=== PATIENT | male | born 1980 | race American Indian/Alaskan Native ===

== ENCOUNTER 2017-06-24 14:26 | Emergency (ER) | payer OTHER ==
[2017-06-24] MEDS ORDERED: ASPIRIN PO ONE (14:48)
[2017-06-24 15:22] LABS: Basophils % (Auto) 0.5 % (0.0-1.8); Eosinophils % (Auto) 0.4 % (0.0-4.3); Hematocrit 40.6 % (35.5-45.6); Hemoglobin 13.4 gm/dl (11.8-15.2); Lymphocytes # (Auto) 1.9 K/mm3 (1.2-5.4); Lymphocytes % (Auto) 22.5 % (13.4-35.0); Mean Corpuscular HGB Conc 33 % (32-34); Mean Corpuscular Hemoglobin 29 pg (28-32); Mean Corpuscular Volume 88 fl (84-94); Monocytes # (Auto) 0.6 K/mm3 (0.0-0.8); Monocytes % (Auto) 7.5 % (0.0-7.3); Platelet Count 269 K/mm3 (140-440); Red Blood Count 4.62 M/mm3 (3.65-5.03); Red Cell Distribution Width 13.2 % (13.2-15.2)
[2017-06-24 15:31] LABS: BUN/Creatinine Ratio 21; Blood Urea Nitrogen 17 mg/dL (9-20); Calcium 9.2 mg/dL (8.4-10.2); Hemolysis Index 5
--- NOTE | 2017-06-24 17:36 | Emergency Department Report ---
ED Chest Pain HPI - General Chief Complaint: Chest Pain Stated Complaint: CHEST/ARM PAIN/POSS HIGH BP Time Seen by Provider: 06/24/17 16:44 Source: patient Mode of arrival: Ambulatory Limitations: No Limitations - History of Present Illness Initial Comments: 37-year-old male with past medical history of hypertension and asthma presents to hospital complains of left-sided chest pain radiating to her arm at 11 AM. 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 He was performing lifting when symptoms occurred. Patient has had constant pain to left chest described as squeezing pain fluctuates in intensity with shooting pain down his left arm. Positive associated shortness breath, nausea, diaphoresis. Patient smokes cigarettes. Denies family history of CAD. Patient had a stress test about 8 years ago required a cardiac cath. Patient cannot recall the result but states that the doctors were discussing placing a stent that he never followed back up. Patient received aspirin prior to arrival. He's been noncompliant with his blood pressure medicine lisinopril/hydrochlorothiazide for the past 6 days because he thinks it makes him dehydrated because he urinates a lot while taking the medication. - Related Data Previous Rx's Medication Instructions Recorded Last Taken Type Azithromycin [Zithromax Z-RANDA] 250 mg PO DAILY #6 tablet 11/18/13 Unknown Rx Prednisone 40 mg PO DAILY #5 day 11/18/13 Unknown Rx traMADol [Ultram 50 MG tab] 50 mg PO Q6HR PRN #20 tablet 11/18/13 Unknown Rx ALPRAZolam [Xanax TAB] 0.5 mg PO BID PRN #20 tab 06/24/17 Unknown Rx Pantoprazole [Protonix TAB] 20 mg PO DAILY #30 tablet. 06/24/17 Unknown Rx Allergies Allergy/AdvReac Type Severity Reaction Status Date / Time No Known Allergies Allergy Unverified 11/18/13 16:33 Heart Score - HEART Score History: Slightly suspicious EKG: Non-specific Age: < 45 Risk factors: 1-2 risk factors Troponin: < normal limit HEART Score: 2 ED Review of Systems ROS: Stated complaint: CHEST/ARM PAIN/POSS HIGH BP Other details as noted in HPI Comment: All other systems reviewed and negative ED Past Medical Hx - Past Medical History Hx Hypertension: Yes Hx Asthma: Yes Additional medical history: torn esophagus - Surgical History Past Surgical History?: No - Social History Smoking Status: Current Every Day Smoker Substance Use Type: Alcohol - Medications Home Medications: Home Medications Medication Instructions Recorded Confirmed Last Taken Type Azithromycin [Zithromax Z-RANDA] 250 mg PO DAILY #6 tablet 11/18/13 Unknown Rx Prednisone 40 mg PO DAILY #5 day 11/18/13 Unknown Rx traMADol [Ultram 50 MG tab] 50 mg PO Q6HR PRN #20 tablet 11/18/13 Unknown Rx ALPRAZolam [Xanax TAB] 0.5 mg PO BID PRN #20 tab 06/24/17 Unknown Rx Pantoprazole [Protonix TAB] 20 mg PO DAILY #30 tablet. 06/24/17 Unknown Rx ED Physical Exam - General Limitations: No Limitations - Other Other exam information: General: No limitations, patient is alert in no acute distress Head exam: Atraumatic, normocephalic Eyes exam: Normal appearance, pupils equal reactive to light, extraocular movements intact ENT: Moist mucous membrane, normal oropharynx Neck exam: Normal inspection, full range of motion, no meningismus nontender Respiratory exam: Clear to auscultation bilateral, no wheezes, rales, crackles Cardiovascular: Normal rate and rhythm, left mid chest wall tenderness Abdomen: Soft, nondistended, and nontender, with normal bowel sounds, no rebound, or guarding Extremity: Full range of motion normal inspection no deformity, no calf tenderness or edema Back: Normal Inspection, full range of motion, no tenderness Neurologic: Alert, oriented x3, cranial nerves intact, no motor or sensory deficit Psychiatric: normal affect, normal mood Skin: Warm, dry, intact ED Course Vital Signs 06/24/17 14:44 Temperature 98.3 F Pulse Rate 89 Respiratory 18 Rate Blood Pressure 162/97 O2 Sat by Pulse 99 Oximetry PARVIZ score - Parviz Score Age > 65: (0) No Aspirin use within the Past 7 Days: (0) No 3 or more CAD Risk Factors: (0) No 2 or more Angina events in past 24 hrs: (1) Yes Known CAD with more than 50% Stenosis: (0) No Elevated Cardiac Markers: (0) No ST Deviation Greater than 0.5mm: (0) No PARVIZ Score: 1 ED Medical Decision Making - Lab Data Result diagrams: 06/24/17 14:54 06/24/17 14:54 Lab Results 06/24/17 06/24/1706/24/18 Range/Units 14:54 14:54 17:16 WBC 8.3 (4.5-11.0) K/mm3 RBC 4.62 (3.65-5.03) M/mm3 Hgb 13.4 (11.8-15.2) gm/dl Hct 40.6 (35.5-45.6) % MCV 88 (84-94) fl MCH 29 (28-32) pg MCHC 33 (32-34) % RDW 13.2 (13.2-15.2) % Plt Count 269 (140-440) K/mm3 Lymph % (Auto) 22.5 (13.4-35.0) % [place] % (Auto) 7.5 H (0.0-7.3) % Eos % (Auto) 0.4 (0.0-4.3) % Baso % (Auto) 0.5 (0.0-1.8) % Lymph # 1.9 (1.2-5.4) K/mm3 Rogers # 0.6 (0.0-0.8) K/mm3 Eos # 0.0 (0.0-0.4) K/mm3 Baso # 0.0 (0.0-0.1) K/mm3 Seg Neutrophils % 69.1 (40.0-70.0) % Seg Neutrophils # 5.8 (1.8-7.7) K/mm3 D-Dimer (0-234) ng/mlDDU Sodium 137 (137-145) mmol/L Potassium 3.9 (3.6-5.0) mmol/L Chloride 97.1 L (98-107) mmol/L Carbon Dioxide 25 (22-30) mmol/L Anion Gap 19 mmol/L BUN 17 (9-20) mg/dL Creatinine 0.8 (0.8-1.5) mg/dL Estimated GFR > 60 ml/min BUN/Creatinine Ratio 21 % Glucose 94 (75-100) mg/dL Calcium 9.2 (8.4-10.2) mg/dL Troponin T < 0.010 < 0.010 (0.00-0.029) ng/mL 06/24/17 Range/Units 17:40 WBC (4.5-11.0) K/mm3 RBC (3.65-5.03) M/mm3 Hgb (11.8-15.2) gm/dl Hct (35.5-45.6) % MCV (84-94) fl MCH (28-32) pg MCHC (32-34) % RDW (13.2-15.2) % Plt Count (140-440) K/mm3 Lymph % (Auto) (13.4-35.0) % [place] % (Auto) (0.0-7.3) % Eos % (Auto) (0.0-4.3) % Baso % (Auto) (0.0-1.8) % Lymph # (1.2-5.4) K/mm3 Rogers # (0.0-0.8) K/mm3 Eos # (0.0-0.4) K/mm3 Baso # (0.0-0.1) K/mm3 Seg Neutrophils % (40.0-70.0) % Seg Neutrophils # (1.8-7.7) K/mm3 D-Dimer < 135.00 (0-234) ng/mlDDU Sodium (137-145) mmol/L Potassium (3.6-5.0) mmol/L Chloride (98-107) mmol/L Carbon Dioxide (22-30) mmol/L Anion Gap mmol/L BUN (9-20) mg/dL Creatinine (0.8-1.5) mg/dL Estimated GFR ml/min BUN/Creatinine Ratio % Glucose (75-100) mg/dL Calcium (8.4-10.2) mg/dL Troponin T (0.00-0.029) ng/mL - EKG Data -: EKG Interpreted by Me EKG shows normal: sinus rhythm, axis (qrs 84), QRS complexes (qrsd 89), ST-T waves (lvh, early repol, no stemi) Rate: normal (72) - Radiology Data Radiology results: image reviewed (chest x-ray PA and lateral read by me: no acute findings) - Medical Decision Making Chest pain There is a reproducible component Patient has risk factors and a history of abnormal stress Will be admitted for cardiac evaluation No signs of ST elevation LA or troponin elevation in the ED HTN med noncompliance - Differential Diagnosis PE, costochondritis, muscle strain, LA, unstable angina, pneumothorax Critical Care Time: No Critical care attestation.: If time is entered above; I have spent that time in minutes in the direct care of this critically ill patient, excluding procedure time. ED Disposition Clinical Impression: Chest pain, HTN (hypertension), Medically noncompliant Disposition: OP ADMIT IP TO THIS HOSP Is pt being admited?: Yes Condition: Stable Prescriptions: ALPRAZolam [Xanax TAB] 0.5 mg PO BID PRN #20 tab PRN Reason: Anxiety Pantoprazole [Protonix TAB] 20 mg PO DAILY #30 tablet. Time of Disposition: 17:36 (DR Bueno/hosp)
--- NOTE | 2017-06-24 17:39 | History and Physical Report ---
History of Present Illness Chief complaint: My chest was hurting History of present illness: 37 YO Male with HTN, Asthma presents to ED for evaluation. Pt states that he has experienced pain in his chest Chest Pain Hx Hypertension: Yes Hx Asthma: Yes Additional medical history: torn esophagus - Surgical History Past Surgical History?: No - Social History Smoking Status: Current Every Day Smoker Substance Use Type: Alcohol - Medications Medications and Allergies Allergies Allergy/AdvReac Type Severity Reaction Status Date / Time No Known Allergies Allergy Unverified 11/18/13 16:33 Home Medications Medication Instructions Recorded Confirmed Last Taken Type Azithromycin [Zithromax Z-RANDA] 250 mg PO DAILY #6 tablet 11/18/13 Unknown Rx Prednisone 40 mg PO DAILY #5 day 11/18/13 Unknown Rx traMADol [Ultram 50 MG tab] 50 mg PO Q6HR PRN #20 tablet 11/18/13 Unknown Rx Exam - Constitutional Vitals: Temp Pulse Resp BP Pulse Ox 98.3 F 89 18 162/97 99 06/24/17 14:44 06/24/17 14:44 06/24/17 14:44 06/24/17 14:44 06/24/17 14:44 Results - Labs CBC & Chem 7: 06/24/17 14:54 06/24/17 14:54 Labs: Abnormal lab results 06/24/17 06/24/17 Range/Units 14:54 14:54 [place] % (Auto) 7.5 H (0.0-7.3) % Chloride 97.1 L (98-107) mmol/L
--- NOTE | 2017-06-24 19:06 | XRay Report ---
FINAL REPORT EXAM: XR CHEST ROUTINE 2V HISTORY: cp TECHNIQUE: 2 view examination of the chest PRIORS: None FINDINGS: There is no consolidated pneumonia, pleural effusion, or pneumothorax. Cardiac silhouette size is normal without vascular congestion. The regional skeleton is without acute pathology. Large lung volumes bilaterally suggest hyperinflation which may reflect pulmonary emphysema. IMPRESSION: No evidence of acute cardiopulmonary disease Large lung volumes may reflect asthma or pulmonary emphysema
[2017-06-24 21:35] VITALS: BP 139/82
== END 2017-06-24 21:15 | disposition admitted as inpatient to this hospital (09) ==
LOC: ED 14:26
DX: R07.9 Chest pain, unspecified (principal); I10 Essential (primary) hypertension; J45.909 Unspecified asthma, uncomplicated; F17.200 Nicotine dependence, unspecified, uncomplicated; Z91.19 Patient's noncompliance with other medical treatment and regimen
CPT/HCPCS: 36415; 71046; 80048; 84484; 85025; 85379; 93005; 93010; 99284